=== PATIENT | male | born 1965 | race Caucasian/White ===

== ENCOUNTER → 2019-01-31 08:41 | Outpatient (CLI) | payer OTHER, SELFPAY ==
[2016-08-13 10:39] VITALS: BMI 26.6
[2019-01-31 11:10] LABS: Vitamin B12 475 pg/mL (211-911)
[2019-02-04 11:35] LABS: Vitamin B1, Thiamine 123.1 nmol/L (66.5-200.0)
== END ==
PROVIDERS: Family Provider Family Medicine; PCP Family Medicine; Referring Provider Family Medicine; Visit Provider Family Medicine
DX: M54.9 Dorsalgia, unspecified (principal); G62.9 Polyneuropathy, unspecified
CPT/HCPCS: 82607; 84425

== ENCOUNTER 2024-05-11 12:45 | Emergency (ER) | payer SELFPAY ==
[2024-05-11 12:46] VITALS: BP 145/93; PULSE 85; RESP 18; TEMP 36.3; O2SAT 95; BMI 26.9
--- NOTE | 2024-05-11 12:48 | ED.RN ---
PATIENT STATES THIS INJURY HAPPENED AT WORK BUT DOES NOT WANT TO FILE FOR WORKERS COMP
--- NOTE | 2024-05-11 13:13 | EDS_ITS ---
HPI History of Present Illness HPI Narrative: This 8-year-old male no stated past medical history. Says last week he twisted and injured his right knee he was feeling better and he had more pain today and mild swelling. No prior knee history of knee surgery. Denies other complaints. No fever or redness. Chief Complaint: Lower Extremity Injury Informant: patient Occured/Mechanism Mechanism/Context: Yes injury Onset/Context/Timing Onset: Days Context: Sudden Onset Timing: Intermittent Quality of Pain: Dull and Aching Current Severity: Mild Maximum Severity: Mild Narrative Narrative: 58-year-old male no seen past medical history. Twisted his knee last week had pain and resolved returned today with some mild swelling. No prior knee history or surgery. Prior similar symptoms: No Recent Illness/Hospitalization: No PFSH PFSH Medical History no medical history no medical history Home Medications ?Medication ?Instructions ?Recorded ?Last Taken ?Type cyclobenzaprine 10 mg tablet 10 mg PO TID PRN Muscle Spasm ##20 08/13/16 Unknown Rx oxycodone-acetaminophen 7.5 mg-325 1 tab PO Q6H PRN PRN Pain #10 tabs 08/13/16 Unknown Rx mg tablet (Percocet) Allergy/AdvReac Type Severity Reaction Status Date / Time No Known Allergies Allergy Verified 05/11/24 12:46 Surgical History no surgical history no surgical history Social History Smoking Status: Current every day smoker tobacco type: cigarettes ROS ROS ED ROS Narrative Denies recent illness nor fever. Constitutional Constitutional ED: Denies chills or fever(s) Eyes Eyes: Denies blurry vision ENT ENT ED: Denies ear pain Cardiovascular Cardiovascular: Denies chest pain Respiratory/Chest Respiratory/Chest: Denies cough or dyspnea Gastrointestinal Gastrointestinal: Denies abdominal pain or constipation Genitourinary Genitourinary ED: Denies dysuria or hematuria Musculoskeletal Musculoskeletal: Denies arthralgias or back pain Integumentary Denies abscess Neurologic Neurologic: Denies headache(s) Psychiatric Psychiatric: Denies anxiety Endocrine Endocrinology: Denies polydipsia Hematologic/Lymphatic Hematologic/Lymphatic: Denies easy bleeding or easy bruising Allergic/Immunologic Allergic/Immunologic ED: Denies mouth swelling, tongue swelling or urticaria EXAM Physical Exam Narrative Exam Narrative: Well-appearing 58-year-old male. Vital signs stable afebrile. H EENT exam unremarkable. Neck nontender. Lungs clear to auscultation bilaterally. Heart regular rhythm no murmur. Abdomen soft nontender. Moving all 4 extremities. He has mild tenderness to his right knee. Minimal swelling. No redness or warmth. He is able to do flexion and full extension 180 degrees. He can lift his leg off the bed. His extensor mechanism is intact. There is very minimal swelling. There is no signs of septic joint. Is not red or hot. ACL PCL appear to be intact as does his MCL and LCL. As is the quadriceps patellar tendon. He has normal dorsi and plantarflexion. Normal strength and sensation in his right foot. Hip is nontender. Otherwise exam unremarkable. Const Vital Signs: 05/11/24 12:46 Temperature 97.3 F L Temperature Source Temporal Pulse Rate 85 Respiratory Rate 18 Blood Pressure 145/93 H Blood Pressure Mean 110 Pulse Ox 95 Oxygen Delivery Method Room Air Positive well nourished and well developed; Negative for cachectic, contractures or unkempt General Appearance ED: well developed and NAD; Negative for unkempt, cachectic or contractures Nutritional Appearance: Negative for cachectic HEENT Reports moist mucous membranes normocephalic and atraumatic; Negative for trauma or tenderness Eyes PERRL General Eye ED: Negative for other Neck full ROM and supple Thyroid: Negative for tender Lymph Lymphatic: Negative for other Chest Wall inspection of chest normal and palpation of chest normal Chest: Negative for other Resp normal respiratory effort, no retractions and clear to auscultation bilaterally Effort and Inspection: Negative for pain with movement Auscultation: Negative for rales, rhonchi, wheezes or diminished lung sounds Cardio regular rate, regular rhythm, S1 normal heart sound, S2 normal heart sound and no murmurs Rate: Negative for bradycardia or tachycardic Rhythm: Negative for abnormal rhythm Bruits: Negative for other GI non-tender, non-distended and no masses Inspection: Negative for abdominal distention Auscultation: normoactive bowel sounds Palpation: soft; Negative for tender, guarding or rebound tenderness present Back/Spine no CVA tenderness General Back: Negative for CVA tenderness, swelling or other Cervical Spine: Negative for cervical spine tenderness Thoracic Spine / Upper Back: Negative for thoracic spinal tenderness Lumbar Spine / Lower Back: Negative for lumbar spinal tenderness Extremity normal to inspection and full ROM Extremity Narrative: Right knee minimal swelling. Mild tenderness. Normal range of motion. Ligaments and tendons appear to be intact. No bony deformity. No septic joint. Right foot neurovascular intact. Neuro oriented x3, CN's II-XII intact bilaterally and moves all extremities Sensorium / Orientation: alert, oriented to person, oriented to place and oriented to time; Negative for orientation impaired, confused, lethargic or stuporous Motor Exam: strength 5/5 throughout Psych mental status grossly normal Appearance: Negative for unkempt Speech: No other Mood & Affect: Negative for anxious Skin no wounds Lesions: no lesions Rashes: no rashes Trauma: Negative for abrasion, laceration or puncture MDM MDM MDM Narrative Medical decision making narrative: 58-year-old male with knee pain exam benign under mild swelling and mild tenderness. X-ray will be obtained. He did reportedly twisted last week. Repeat exam unchanged at 10:31 PM. Patient I discussed his x-ray results his repeat exam is unchanged. Small swelling. Normal range of motion. Ice. Anti- inflammatories follow-up with orthopedics if not improving. He will be referred to Dr. Gonzalez for [facility] who is on-call for no doc. History & Record Review Discussion w/independent historian: Patient Radiography Diagnostic Testing: Clinical Impression(s) from Imaging Studies Knee X-Ray 05/11/24 13:15 IMPRESSION: Mild degenerative arthrosis of the patellofemoral joint. Small right knee joint effusion. No demonstrated fracture. Electronically Signed: Taurus Haq MD at 13:46 EDT , Right knee x-ray, 4 views, interpreted both by myself and radiologist. Shows a small effusion and mild degenerative changes of the patellofemoral joint. No fracture. No dislocation. Discharge Plan Triage Chief Complaint: Lower Extremity Injury ED Provider: Prem Yen Dx/Rx/DC Orders Clinical Impression: Acute knee pain, Knee sprain Instructions: ED Knee Sprain Prescriptions: No Action oxycodone-acetaminophen [Percocet] 1 EACH tablet 1 tab PO Q6H PRN PRN (Reason: Pain) Qty: 10 0RF cyclobenzaprine 10 MG tablet 10 mg PO TID PRN (Reason: Muscle Spasm) Qty: 20 0RF Primary Care Provider: Angelo Martinez Referrals: Angelo Martinez MD [Primary Care Provider] - Dwain Gonzalez DO [Med Staff - Active Staff] - 1 Week if not improving Activity Restrictions/Additional Instructions: Ice to your knee to decrease pain and swelling. Slowly increase activity as t olerated. Motrin for pain and swelling. Tylenol for pain. Follow-up with [facility] Dr. Gonzalez if not improving. Print Language: Armenian Disposition Disposition: Home, Self Care
--- NOTE | 2024-05-11 13:15 | RAD_ITS ---
STUDY: X-RAY - RIGHT KNEE REASON FOR EXAM: Male, 58 years old. Pain post injury last week. TECHNIQUE: 4 views of the right knee. COMPARISON: None. FINDINGS: Normal visualized distal femur. Normal visualized proximal tibia and fibula. Normal proximal tibiofibular articulation. There is no demonstrated fracture. Normal medial femorotibial compartment. Normal lateral femorotibial compartment. There is mild degenerative arthrosis of the patellofemoral articulation with small marginal osteophyte formation. There is a small right knee joint effusion. The soft tissue structures are unremarkable. 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 Small right knee joint effusion. No demonstrated fracture. Electronically Signed: Taurus Haq MD at 13:46 EDT ,
--- NOTE | 2024-05-11 15:07 | ED.RN ---
pT. WAS QUESTIONING IF HE WANTED TO FILLOUT A FROI FOR THIS INJURY. PT. SAID HE COULD NOT REACH HIS BOSS. THIS RN TOLD PT. HE COULD FILL OUT A FROI BUT I WOULD LOOK INTO IF HE NEEDED DRUG TESTED OR NOT. PT. ELOPED WHEN RN LEFT THE ROOM TO CHECK ON DRUG TESTING.
== END 2024-05-11 15:09 | disposition home or self-care (01) ==
PROVIDERS: Emergency Provider Emergency Medicine; PCP Family Medicine; Visit Provider Emergency Medicine
DX: S83.91XA Sprain of unspecified site of right knee, initial encounter (principal); F17.210 Nicotine dependence, cigarettes, uncomplicated; X58.XXXA Exposure to other specified factors, initial encounter
CPT/HCPCS: 73564; 99282

== ENCOUNTER → 2025-04-10 | Outpatient (CLI) | payer SELFPAY ==
--- NOTE | 2025-04-10 09:42 | RAD_ITS ---
PROCEDURE: CERV SPINE 4 OR 5 VIEWS 04/10/2025 REASON FOR EXAM: PAIN TECHNIQUE: CERV SPINE 4 OR 5 VIEWS COMPARISON: None. FINDINGS: No evidence of fracture or subluxation. Positional and/or degenerative straightening of the cervical lordosis. Moderate-advanced multilevel spondylotic changes with varying degrees of disc space narrowing, endplate sclerosis, anterior osteophytosis, and hypertrophic facet arthropathy. There is moderate-advanced osseous neural foraminal narrowing at multiple levels. No prevertebral soft tissue swelling. Imaged lung apices are clear. RAD/Cerv Spine 4 or 5 Views IMPRESSION: No evidence of fracture or subluxation. Moderate-advanced multilevel spondylotic changes, as described. Reading Location: [id number]
--- NOTE | 2025-04-10 09:43 | RAD_ITS ---
PROCEDURE: L/S SPINE MIN 4 VIEWS 04/10/2025 REASON FOR EXAM: PAIN TECHNIQUE: L/S SPINE MIN 4 VIEWS COMPARISON: None FINDINGS: Four views of the lumbar spine were obtained and demonstrate 5 lumbar-type vertebral bodies below the last set of paired ribs. There is approximately 6 mm of anterior listhesis of L4 in relationship to L5. There is no spondylolysis. Mild degenerative changes of the lumbar spine are noted. The visualized sacrum is unremarkable. There appears to be disc space narrowing involving the L1-L2, L2-L3, L3-L4 and L4-L5 disc space. There does appear to be some bony encroachment of the neural foramina at these levels. The L5-S1 disc space is well preserved. Very mild degenerative changes of both hips are noted. Arteriosclerotic vascular disease of the aorta is noted. RAD/L/S Spine Min 4 Views IMPRESSION: There is approximately 6 mm of anterior listhesis of L4 in relationship to L5. Mild degenerative changes of the lumbar spine are noted. Degenerative disc disease involving the L1-L2, L2-L3, L3-L4 and L4-L5 discs. Reading Location: [id number]
--- OUTSIDE RECORDS SUMMARY | 2025-04-10 17:46 | XMS RPT_ITS | CCD ---
Author Organization [facility] Care Team Providers Care Field Talent Qualification Specialist Name Role Phone Prem Yen John E Primary Care Unavailable Problems Problem Classification Problem Date Documented Da te Episodic/Chronic Other non-traumatic joint disorders (1 source) Pain in right knee; Translations: [Pain in right knee] Onset: 05-19-2024 Episodic Results Test Name Value Interpretation Reference Range Facil ity Emergency Department Summary on 05-11-2024 Emergency Department Summary [facility] Medical Records Department [address] [place] [address] Emergency Department Summary 05/11/24 MR#: [id number] Acct: [id number] Name: KSENIA VILLA Rep #: [id number] : 1965 58 From: Prem Yen MD PCP: Dr. Angelo Martinez MD Status:DEP ER Location: ED HPI History of Present Illness HPI Narrative: This 8-year-old male no stated past medical history. Says last week he twisted and injured his right knee he was feeling better and he had more pain today and mild swelling. No prior knee history of knee surgery. Denies other complaints. No fever or redness. Chief Complaint: Lower Extremity Injury Informant: patient Occured/Mechanism Mechanism/Context: Yes injury Onset/Context/Timing Onset: Days Context: Sudden Onset Timing: Intermittent Quality of Pain: Dull and Aching Current Severity: Mild Maximum Severity: Mild Narrative Narrative: 58-year-old male no seen past medical history. Twisted his knee last week had pain and resolved returned today with some mild swelling. No prior knee history or surgery. Prior similar symptoms: No Recent Illness/Hospitalizat ion: No PFSH PFSH Medical History no medical history no medical history Home Medications ???Medication ???Instructions ???Recorded ???Last Taken ???Type cyclobenzaprine 10 mg tablet 10 mg PO TID PRN Muscle Spasm ##20 08/13/16 Unknown Rx oxycodone-acetaminop hen 7.5 mg-325 1 tab PO Q6H PRN PRN Pain #10 tabs 08/13/16 Unknown Rx mg tablet (Percocet) Allergy/AdvReac Type Severity Reaction Status Date / Time No Known Allergies Allergy Verified 05/11/24 12:46 Surgical History no surgical history no surgical history Social History Smoking Status: Current every day smoker tobacco type: cigarettes ROS ROS ED ROS Narrative Denies recent illness nor fever. Constitutional Constitutional ED: Denies chills or fever(s) Eyes Eyes: Denies blurry vision ENT ENT ED: Denies ear pain Cardiovascular Cardiovascular: Denies chest pain Respiratory/Chest Respiratory/Chest: Denies cough or dyspnea Gastrointestinal Gastrointestinal: Denies abdominal pain or constipation Genitourinary Genitourinary ED: Denies dysuria or hematuria Musculoskeletal Musculoskeletal: Denies arthralgias or back pain Integumentary Denies abscess Neurologic Neurologic: Denies headache(s) Psychiatric Psychiatric: Denies anxiety Endocrine Endocrinology: Denies polydipsia Hematologic/Lymphati c Hematologic/Lymphati c: Denies easy bleeding or easy bruising Allergic/Immunologic Allergic/Immunologic ED: Denies mouth swelling, tongue swelling or urticaria EXAM Physical Exam Narrative Exam Narrative: Well-appearing 58-year-old male. Vital signs stable afebrile. H EENT exam unremarkable. Neck nontender. Lungs clear to auscultation bilaterally. Heart regular rhythm no murmur. Abdomen soft nontender. Moving all 4 extremities. He has mild tenderness to his right knee. Minimal swelling. No redness or warmth. He is able to do flexion and full extension 180 degrees. He can lift his leg off the bed. His extensor mechanism is intact. There is very minimal swelling. There is no signs of septic joint. Is not red or hot. ACL PCL appear to be intact as does his MCL and LCL. As is the quadriceps patellar tendon. He has normal dorsi and plantarflexion. Normal strength and sensation in his right foot. Hip is nontender. Otherwise exam unremarkable. Const Vital Signs: 05/11/24 12:46 Temperature 97.3 F L Temperature Source Temporal Pulse Rate 85 Respiratory Rate 18 Blood Pressure 145/93 H Blood Pressure Mean 110 Pulse Ox 95 Oxygen Delivery Method Room Air Positive well nourished and well developed; Negative for cachectic, contractures or unkempt General Appearance ED: well developed and NAD; Negative for unkempt, cachectic or contractures Nutritional Appearance: Negative for cachectic HEENT Reports moist mucous membranes normocephalic and atraumatic; Negative for trauma or tenderness Eyes PERRL General Eye ED: Negative for other Neck full ROM and supple Thyroid: Negative for tender Lymph Lymphatic: Negative for other Chest Wall inspection of chest normal and palpation of chest normal Chest: Negative for other Resp normal respiratory effort, no retractions and clear to auscultation bilaterally Effort and Inspection: Negative for pain with movement Auscultation: Negative for rales, rhonchi, wheezes or diminished lung sounds Cardio regular rate, regular rhythm, S1 normal heart sound, S2 normal heart sound and no murmurs Rate: Negative for bradycardia or tachycardic Rhythm: Negative for abnormal rhythm Bruits: Negative for other GI non-tender, non-distended and no masses Inspe (more content not included)... Normal [facility] Knee 4 or More Viewson 05-11 Knee 4 or More Views [facility] Imaging Services [address] [place], [place] [id number] Knee 4 or More Views MR#: [id number] Acct: [id number] Name: KSENIA VILLA Rep #: [id number] : 1965 M 58 From: Taurus Haq MD PCP: Dr. Angelo Martinez MD Status: PRE ER Study: Knee 4 or More Views Date of Exam: 05/11/24 Exam# [id number] Ordering Dr: Prem Yen MD [id number] STUDY: X-RAY - RIGHT KNEE REASON FOR EXAM: Male, 58 years old. Pain post injury last week. TECHNIQUE: 4 views of the right knee. COMPARISON: None. FINDINGS: Normal visualized distal femur. Normal visualized proximal tibia and fibula. Normal proximal tibiofibular articulation. There is no demonstrated fracture. Normal medial femorotibial compartment. Normal lateral femorotibial compartment. There is mild degenerative arthrosis of the patellofemoral articulation with small marginal osteophyte formation. There is a small right knee joint effusion. The soft tissue structures are unremarkable. 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 Small right knee joint effusion. No demonstrated fracture. Electronically Signed: Taurus Haq MD at 13:46 EDT , CC: Dr. Prem Yen MD; Dr. Angelo Martinez MD Automatic Packer Operator: Signed [facility] CNPTOUTREACHowill 10-28-2019 [facility] Outreach (FAMPWS) KSENIA VILLA ([id number]) 1965 M [facility] Date Time Provider Department 10/28/19 PATO KOHLI) FAMPWS During your visit today, we recorded the following information about you: Pato Kohli CMA 10/28/2019 1:42 PM Signed [facility] QUICK[facility] Provider Action/FYI: Patients charted reviewed - PCP fidelity Last patient activity 07/28/2016 Last PCP visit 07/28/2016 Based on this information Dr. Cavazos has been removed as PCP. Patient identified by name and . Pato Kohli CMA Allergies As of Date: 10/28/2019 Noted Allergy Reaction CATS 04/18/2013 14 - Other: See Comments Comments: Runny nose, itchy eyes DUST 04/18/2013 14 - Other: See Comments Comments: Runny nose, itchy eyes Date Reviewed: 07/28/2016 Reviewed by: Bobbi Martin MA - Fully Assessed Reason for Visit: PHMA/Care Gap Outreach [3605] Problem List As Of Date 10/28/2019 Noted Resolved Adjustment disorder with mixed anxiety and depr*03/25/2013 Marital conflict [Z63.0] 03/25/2013 Encounter Status:Closed by PATO KOHLI CMA on 10/28/19 [facility] PROGRESSon 10-28-2019 PROGRESS HNO ID: [id number] Author: Pato (Carri) Seun Service: ? Author Type: Internal Medicine Physician Assistant Type: Progress Notes Filed: 10/28/2019 1:42 PM Note Text: [facility] QUICKNOTE Provider Action/FYI: Patients charted reviewed - PCP fidelity Last patient activity 07/28/2016 Last PCP visit 07/28/2016 Based on this information Dr. Cavazos has been removed as PCP. Patient identified by name and . Pato Kohli CMA [facility] Encounters Encounter Date Encounter Type Care Provider Facility Start: 05-11-2024 End: 05-11-2024 Emergency department patient visit [facility] Facility:[facility] Payers Date Payer Category Payer Self-pay Unknown [id number] Summary Purpose Family History No Family History Records FoundNo Family History Records Found Advance Directives No Advanced Directives Records FoundNo Advanced Directives Records Found Additional Source Comments (unrecognized sect ion and content) No Status Records FoundNo Status Records Found INFORMATION SOURCE (unrecogn ized section and content) DATE CREATED AUTHOR 10/28/2019 [facility] DATE CREATED AUTHOR AUTHOR'S ORGANIZ ATION 05/21/2024 [facility] FOR RECORDS PERTAINING TO PATIENTS WHO ARE OR HAVE BEEN ENROLLED IN A CHEMICAL DEPENDENCY/SUBSTANCEABUSE PROGRAM, SOME INFORMATION MAY BE OMITTED. This clinical summary was aggregated from multiple sources. Caution should be exercised in using it in the provision of clinical care. This summary normalizes information from multiple sources, and as a consequence, information in this document may materially change the coding, format and clinical context of patient data. In addition, data may be omitted in some cases. CLINICAL DECISIONS SHOULD BE BASED ON THE PRIMARY CLINICAL RECORDS. [facility] [employer] provides no warranty or guarantee of the accuracy or completeness of information in this document.
== END | disposition home or self-care (01) ==
LOC: MTRAD 09:40
PROVIDERS: PCP Family Medicine; Referring Provider Chiropractor Orthopedic; Visit Provider Chiropractor Orthopedic
DX: M99.01 Segmental and somatic dysfunction of cervical region (principal); M99.03 Segmental and somatic dysfunction of lumbar region; M54.50 Low back pain, unspecified
CPT/HCPCS: 72050; 72110